=== PATIENT | male | born 1925 | race Caucasian/White ===

== ENCOUNTER 2017-01-04 15:06 | Emergency (ER) | payer MEDICARE, BC ==
[2017-01-04 15:41] VITALS: BP 193/82
--- NOTE | 2017-01-04 16:46 | UC ---
Complaint Male HPI - History of Current Complaint Chief Complaint: UCGeneralIllness Stated Complaint: ENVIRONMENTAL ALLERGIES Time Seen by Provider: 01/04/17 16:35 Hx Obtained From: Patient Onset/Duration: Gradual Onset - mucus post nasal drip night., Lasting Days, Worse Since - last night has had urinary frequency Severity Initially: Mild Severity Currently: Moderate Location: Penis - urinary pressure. Associated Signs And Symptoms: Negative: Hematuria, Dysuria - Allergies/Home Medications Allergies/Adverse Reactions: Allergies Allergy/AdvReac Type Severity Reaction Status Date / Time Dextromethorphan Allergy Unknown Verified 01/04/17 15:41 [From Mucinex DM] Reaction Details Guaifenesin [From Mucinex DM] Allergy Unknown Verified 01/04/17 15:41 Reaction Details Tramadol Allergy Shakes Verified 01/04/17 15:41 Yellow Dye [From Mucinex DM] Allergy Unknown Verified 01/04/17 15:41 Reaction Details Tetracycline AdvReac Nausea Verified 01/04/17 15:41 [email or web address] Allergy Shakes Uncoded 01/04/17 15:41 PMH/Surg Hx/FS Hx/Imm Hx Endocrine History Of: Denies: Diabetes Cardiovascular History Of: Reports: Hypertension GI/ History Of: Denies: Ulcer Psychological History Of: Denies: Depression - Surgical History Surgical History: Yes Surgery Procedure, Year, and Place: prostate procedure, left ear - Family History Known Family History: Positive: Hypertension - Social History Occupation: Retired Lives: Alone Alcohol Use: Occasionally Substance Use Type: None Smoking Status (MU): Never Smoked Tobacco - Immunization History Most Recent Influenza Vaccination: June 2015 Review of Systems ENT: Nasal Discharge Respiratory: Cough - just today, started last night. Genitourinary: Frequency, Urgency All Other Systems Reviewed And Are Negative: Yes Physical Exam Triage Information Reviewed: Yes Appearance: Well-Appearing, No Pain Distress, Well-Nourished Vital Signs: Initial Vital Signs Temp 99.6 F 01/04/17 15:32 Pulse 103 01/04/17 15:32 Resp 16 01/04/17 15:32 BP 193/82 01/04/17 15:32 Pulse Ox 96 01/04/17 15:32 Vital Signs Reviewed: Yes ENT: Positive: Pharynx normal, Nasal congestion - with allergic changes., TMs normal Neck exam: Normal Respiratory: Positive: Lungs clear Cardiovascular Exam: Normal Musculoskeletal: Positive: Other: - slow gait Neurological Exam: Normal Psychological Exam: Normal Skin Exam: Normal Complaint Male Course/Dx - Differential Dx/Diagnosis Differential Diagnosis/HQI/PQRI: Prostatitis, Pyelonephritis, Urinary Tract Infection Provider Diagnoses: Acute cystitis. Acute Upper respiratory illness. Discharge - Discharge Plan Condition: Stable Disposition: HOME Prescriptions: Sulfamethox/Trimethoprim DS* [Bactrim DS 800/160 TAB*] 1 tab PO BID #20 tab Patient Education Materials: Urinary Tract Infection in Men (ED), Sulfamethoxazole/Trimethoprim (By mouth), Upper Respiratory Infection (ED)
== END 2017-01-04 17:51 | disposition home or self-care (01) ==
LOC: UCCORT 15:06
DX: J06.9 Acute upper respiratory infection, unspecified (principal); N30.00 Acute cystitis without hematuria; I10 Essential (primary) hypertension; Z88.1 Allergy status to other antibiotic agents; Z88.5 Allergy status to narcotic agent
CPT/HCPCS: 81003; 87086; 99212; G0463